=== PATIENT | female | born 1980 | race Caucasian/White ===

== ENCOUNTER 2021-12-24 13:40 | Emergency (ER) | payer MEDICAID, SELFPAY ==
[2021-12-24 13:40] VITALS: BP 135/84; PULSE 74; RESP 18; TEMP 36.6; O2SAT 99; BMI 28.3
--- NOTE | 2021-12-24 13:51 | XRR_ITS ---
PROCEDURE INFORMATION: Exam: XR Cervical Spine Exam date and time: 12/24/2021 2:10 PM Age: 41 years old Clinical indication: Injury or trauma; Fall; Blunt trauma TECHNIQUE: Imaging protocol: XR of the cervical spine. Views: 2 or 3 views. COMPARISON: CT head wo con* [id number] 12/24/2021 2:01 PM FINDINGS: Bones/joints: Spinal alignment is normal. Vertebral body height is maintained. The cervical spine is visible through C7-T1 on the lateral view. The tip of the dens is obscured. No acute fracture is visible. Soft tissues: Visible soft tissues are unremarkable. XR/XR cervical spine 3V* [id number] IMPRESSION: No acute fracture.
--- NOTE | 2021-12-24 13:51 | CTR_ITS ---
PROCEDURE INFORMATION: Exam: CT Head Without Contrast Exam date and time: 12/24/2021 2:01 PM Age: 41 years old Clinical indication: Injury or trauma; Fall; Blunt trauma (contusions or hematomas); Injury date: 12/24/21; Injury details: Seizure like activity, severe [place]; Additional info: Fall, closed head injury TECHNIQUE: Imaging protocol: Computed tomography of the head without contrast. Radiation optimization: All CT scans at this facility use at least one of these dose optimization techniques: automated exposure control; mA and/or kV adjustment per patient size (includes targeted exams where dose is matched to clinical indication); or iterative reconstruction. COMPARISON: No relevant prior studies available. RADIATION DOSE METRICS: Total DLP (mGy-cm): 926.86 FINDINGS: Brain: The brain is unremarkable. There is no mass effect or significant white matter disease. There is no acute intracranial hemorrhage. Cerebral ventricles: There is no significant ventricular dilation. The basal cisterns are unremarkable. Paranasal sinuses: The paranasal sinuses are clear. Mastoid air cells: The mastoid air cells are clear. Bones/joints: The calvarium is intact. Soft tissues: The visible extracranial soft tissues are unremarkable. CT/CT head wo con* [id number] IMPRESSION: No acute intracranial abnormality.
--- NOTE | 2021-12-24 13:51 | ECG_ITS ---
[facility] Test Date: 2021-12-24 Pat Name: Julia Elizondo Department: Room: Gender: Female [employer]ill [employer] Tender: : 1980 Requested By: Denton Hamlin Order Number: [id number] Shu MD: Rafael Cooper M.D. Measurements Intervals [place] Rate: 58 P: 54 [place]: 136 QRS: 30 QRSD: 97 T: 20 QT: 431 QTc: 426 Interpretive Statements SINUS BRADYCARDIA LOW QRS VOLTAGE IN PRECORDIAL LEADS [QRS DEFLECTION < 1.0 mV IN CHEST LEADS] INCOMPLETE RIGHT BUNDLE BRANCH BLOCK [90+ ms QRS DURATION, TERMINAL R IN V1/V2, 40+ ms S IN I/aVL/V4/V5/V6] No previous ECG available for comparison Electronically Signed On 12-24-2021 17:13:36 CDT by Rafael Cooper M.D. [id number]
--- NOTE | 2021-12-24 13:58 | W.ED.SEIZURE ---
HPI - Seizure General: Chief Complaint: Fall Stated Complaint: POSSIBLE SEIZURE LIKE ACTIVITY Time Seen by Provider: 12/24/21 13:51 Source: patient Mode of arrival: EMS Limitations: no limitations History of Present Illness: HPI Narrative: 41-year-old female presents to the emergency room from work. 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 She was not feeling well she remained seated for a time when she went to get up she felt like her symptoms worsened she began experiencing a little bit of shortness of breath and then had set up and collapsed she fell backwards and hit her head she did not have a complete loss of consciousness at any time but was stunned. She not on any anticoagulants. There is a question years ago about a possible seizure activity but they believe it was related to something cardiac sounds like from her description she may have had an orthostatic episode she has had work-up before for bradycardia and hypotension. She denies taking any prescription medications she is not been taking any [id number] medications either or any kind of nutritional supplements. She has not had any chest pain. With this episode she did not have loss of consciousness or loss of bowel or bladder control. No recent illness no shortness of breath no chest pain at this time. Onset (ago): minute(s) Witnessed: Yes - by Bystander Trauma: No Seizure History: Yes Possible Precipitating Event: none Associated symptoms: Reports syncope and weakness; Deny chest pain, chills, confusion, cough, diaphoresis, fever(s), anorexia, malaise, rash or short of breath Treatments prior to arrival: none Review of Systems Const: Denies: fever(s), chills, malaise or diaphoresis ENMT: Denies: throat pain, ear or mastoid pain, nasal discharge or nasal congestion Card: Reports: syncope; Denies: chest pain Resp: Denies: dyspnea, productive cough or non-productive cough GI: Denies: abdominal pain, nausea, vomiting, hematemesis, coffee ground emesis, diarrhea, constipation, bloating, hematochezia or melena : Denies: flank pain, difficulty voiding, dysuria, urinary frequency or urinary urgency Skin/Breast: Denies: rash or pruritus Neuro: Denies: confusion PFSH ED PFSH: Medical History (Updated 12/24/21 @ 15:58 by Denton Acuña DO) Bradycardia Surgical History (Updated 12/24/21 @ 14:05 by Denton Acuña DO) No pertinent past surgical history Social History (Updated 12/24/21 @ 14:05 by Denton Acuña DO) Smoking and tobacco status: current every day smoker Alcohol intake: never Physical Exam Const: GENERAL APPEARANCE: cooperative and comfortable ORIENTATION/CONSCIOUSNESS: Yes awake, Yes oriented to person, Yes oriented to place and Yes oriented to time HENMT: COMMON NORMALS: normocephalic, atraumatic, hearing grossly normal bilaterally, external ears normal, EAC's normal, TM's normal bilaterally, Normal nasal mucous membranes and turbinates present, moist oral mucous membranes and oropharynx normal HEAD & SCALP: normocephalic and atraumatic NOSE: Normal nasal mucous membranes and turbinates present EXTERNAL EAR: Yes external ears normal EXTERNAL AUDITORY CANAL: EAC's normal TYMPANIC MEMBRANE: TM's normal bilaterally Eye: COMMON NORMALS: Equal, round and reactive pupils present, EOMs intact bilaterally, conjunctivae normal and no scleral icterus CONJUNCTIVA: Yes conjunctivae normal PUPIL: Yes Equal, round and reactive pupils present Neck/C-Spine: COMMON NORMALS: full ROM, no lymphadenopathy, supple and no JVD Resp: COMMON NORMALS: normal respiratory effort, No retractions, No use of accessory muscles and clear to auscultation bilaterally AUSCULTATION: clear to auscultation bilaterally Cardio: COMMON NORMALS: no JVD, regular rate, regular rhythm and No murmurs present (Cardio) RATE: regular rate RHYTHM: regular rhythm GI: COMMON NORMALS: Soft to palpation and No hepatosplenomegaly present AUSCULTATION: Yes normoactive bowel sounds PALPATION: Yes Soft to palpation, No Tenderness to palpation present (GI), No Guarding due to palpation present (GI) and Yes No hepatosplenomegaly present Extremity: COMMON NORMALS: normal to inspection, capillary refill normal, no clubbing, cyanosis or edema, no calf tenderness and no pedal edema Neuro: SENSORIUM/ORIENTATION: Yes oriented to person, Yes oriented to place and Yes oriented to time Skin: COMMON NORMALS: no rashes or lesions noted GENERAL SKIN EXAM: no rashes or lesions noted Course Vital Signs: Vital signs: Vital Signs Temperature 97.9 F 12/24/21 13:40 Pulse Rate 55 L 12/24/21 16:17 Respiratory Rate 16 12/24/21 16:17 Blood Pressure 128/64 12/24/21 16:17 Pulse Oximetry 99 12/24/21 16:17 MDM - Seizure MDM Narrative Medical decision making narrative: CPK is elevated I suspect she may have had a seizure she reports having had them in the past we will discharge her home and have her follow-up with neurology we will set her up for an EMG she has any recurrence of episodes return to the emergency room. Medical Records Attestation: I reviewed the patient's medical records. Lab Data Attestation: I reviewed the patient's lab results. Result diagrams: 12/24/21 13:24 12/24/21 13:24 Labs: Radiology Impressions Cervical Spine X-Ray 12/24/21 13:51 IMPRESSION: No acute fracture. Head CT 12/24/21 13:51 IMPRESSION: No acute intracranial abnormality. Laboratory Results WBC 9.8 10^3/uL (4.0-10.0) 12/24/21 13:24 RBC 4.66 10^6/uL (4.1-5.3) 12/24/21 13:24 Hgb 14.6 g/dL (11.5-15.3) 12/24/21 13:24 Hct 43.4 % (37.0-47.0) 12/24/21 13:24 MCV 93.1 fl (81-99) 12/24/21 13:24 MCH 31.3 pg (28.0-34.0) 12/24/21 13:24 MCHC 33.6 g/dL (30.0-36.0) 12/24/21 13:24 RDW 13.4 % (12.1-15.1) 12/24/21 13:24 Plt Count 359 10^3/cmm (130-400) 12/24/21 13:24 MPV 8.6 fL (7.4-10.4) 12/24/21 13:24 Neut % (Auto) 65.0 % 12/24/21 13:24 Lymph % (Auto) 27.9 % 12/24/21 13:24 [place] % (Auto) 4.7 % 12/24/21 13:24 Eos % (Auto) 1.6 % 12/24/21 13:24 Baso % (Auto) 0.5 % 12/24/21 13:24 Neut # (Auto) 6.36 10^3/uL (1.8-7.7) 12/24/21 13:24 Lymph # (Auto) 2.7 10^3/uL (0.8-4.8) 12/24/21 13:24 [place] # (Auto) 0.5 10^3/uL (0.2-0.9) 12/24/21 13:24 Eos # (Auto) 0.2 10^3/uL (0.0-0.8) 12/24/21 13:24 Baso # (Auto) 0.1 10^3/uL (0.0-0.1) 12/24/21 13:24 Nucleated RBC % (auto) 0 % 12/24/21 13:24 Nucleated RBCs # 0.0 /100WBC 12/24/21 13:24 Sodium 138 mmol/L (136-145) 12/24/21 13:24 Potassium 4.1 mmol/L (3.5-5.1) 12/24/21 13:24 Chloride 101 mmol/L (98-107) 12/24/21 13:24 Carbon Dioxide 19 mmol/L (22-29) L 12/24/21 13:24 Anion Gap 22.1 (5-19) H 12/24/21 13:24 BUN 8 mg/dL (6-20) 12/24/21 13:24 Creatinine 0.6 mg/dL (0.5-0.9) 12/24/21 13:24 GFR Calculation 109.6 mL/min (90-130) 12/24/21 13:24 Glucose 95 mg/dL (65-115) 12/24/21 13:24 Calculated Osmolality 284 mOsm/kg (285-295) L 12/24/21 13:24 Calcium 9.6 mg/dL (8.5-10.5) 12/24/21 13:24 Total Bilirubin 0.4 mg/dL (0.15-1.2) 12/24/21 13:24 AST 30 U/L (0-32) 12/24/21 13:24 ALT 28 U/L (0-33) 12/24/21 13:24 Alkaline Phosphatase 63 IU/L (35-105) 12/24/21 13:24 Creatine Kinase 320 U/L (26-192) H 12/24/21 13:24 Total Protein 7.7 g/dL (6.6-8.7) 12/24/21 13:24 Albumin 4.7 g/dL (3.5-5.2) 12/24/21 13:24 Globulin 3.0 g/dL (1.3-4.6) 12/24/21 13:24 Urine Color Yellow (Yellow) 12/24/21 14:45 Urine Appearance Clear (CLEAR) 12/24/21 14:45 Urine pH 5 (5-7) 12/24/21 14:45 Ur Specific [place] 1.010 (1.005-1.030) 12/24/21 14:45 Urine Protein Neg (Negative) 12/24/21 14:45 Urine Glucose (UA) Norm (Normal) 12/24/21 14:45 Urine Ketones 3+ (Negative) H 12/24/21 14:45 Urine Blood Neg (Negative) 12/24/21 14:45 Urine Nitrate Negative (Negative) 12/24/21 14:45 Urine Bilirubin Neg (Negative) 12/24/21 14:45 Urine Urobilinogen Norm mg/dL (Negative) 12/24/21 14:45 Ur Leukocyte Esterase Negative (Negative) 12/24/21 14:45 Discharge Plan Discharge Patient Disposition: Home Clinical Impression: Seizure Condition: Stable Discharge Orders: Discharge ED (Routine); Ordered 12/24/21 Ordered By: Denton Acuña Referrals: Kar Ceron MD [Referring] - Patient Instructions: Opioid Safety Activity Restrictions/Additional Instructions: Reccomend that you do not drive. Case managment will make arrangements for a EEG and follow up with neurology. 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
[2021-12-24 14:02] LABS: Basophils # 0.1 10^3/uL (0.0-0.1); Basophils % 0.5 %; Eosinophils # 0.2 10^3/uL (0.0-0.8); Eosinophils % 1.6 %; Hematocrit 43.4 % (37.0-47.0); Hemoglobin 14.6 g/dL (11.5-15.3); Lymphocytes # 2.7 10^3/uL (0.8-4.8); Lymphocytes % 27.9 %; Mean Corpuscular HGB Conc 33.6 g/dL (30.0-36.0); Mean Corpuscular Hemoglobin 31.3 pg (28.0-34.0); Mean Corpuscular Volume 93.1 fl (81-99); Mean Platelet Volume 8.6 fL (7.4-10.4); Monocytes # 0.5 10^3/uL (0.2-0.9); Monocytes % 4.7 %; Neutrophils # 6.36 10^3/uL (1.8-7.7); Nucleated Red Blood Cells % 0 %; Platelet Count 359 10^3/cmm (130-400); Red Blood Count 4.66 10^6/uL (4.1-5.3); Red Cell Distribution Width 13.4 % (12.1-15.1); White Blood Count 9.8 10^3/uL (4.0-10.0)
[2021-12-24 14:27] LABS: Alanine Aminotransferase 28 U/L (0-33); Albumin Level 4.7 g/dL (3.5-5.2); Alkaline Phosphatase 63 IU/L (35-105); Blood Urea Nitrogen 8 mg/dL (6-20); Calcium 9.6 mg/dL (8.5-10.5); Carbon Dioxide 19 mmol/L (22-29); Chloride 101 mmol/L (98-107); Creatine Phosphokinase 320 U/L (26-192); Glomerular Filtration Rate 109.6 mL/min (90-130); Glucose 95 mg/dL (65-115); Osmolality Calculated 284 mOsm/kg (285-295); Sodium 138 mmol/L (136-145); Total Bilirubin 0.4 mg/dL (0.15-1.2); Total Protein 7.7 g/dL (6.6-8.7)
[2021-12-24 14:29] LABS: Anion Gap 22.1 (5-19); Potassium 4.1 mmol/L (3.5-5.1)
[2021-12-24 14:30] LABS: Aspartate Amino Transferase 30 U/L (0-32)
[2021-12-24 14:52] LABS: Add Urine Microscopic? NO; Charge for UA Resulting for Rev
[2021-12-24 14:56] LABS: Bilirubin Urine Neg (Negative); Blood Urine Neg (Negative); Glucose Urine UA Norm (Normal); Ketones Urine 3+ (Negative); Leukocyte Esterase Urine Negative (Negative); Nitrate Urine Negative (Negative); Protein Urine Neg (Negative); Urine Appearance Clear (CLEAR); Urine Color Yellow (Yellow); Urobilinogen Urine Norm (Negative); pH Urine 5 (5-7)
[2021-12-24] MEDS: ketorolac 30 mg/mL INJ IVP (15:05)
[2021-12-24] MEDS: promethazine 25 mg/mL SDV 1 mL 12.5 MG IM (15:06)
[2021-12-24 16:17] VITALS: BP 128/64; PULSE 55; RESP 16; O2SAT 99
--- NOTE | 2021-12-28 14:18 | DCPLANNER ---
Addendum entered by Karen Gu 02/25/22 10:57: Patient had a follow up appointment scheduled with neurology - appointment cancelled Addendum entered by Karen Gu 01/07/22 14:46: Patient has a follow up appointment scheduled for Tuesday, February 08, 2022 at 10:[address] Holden. Clinic will call patient with appointment information. Addendum entered by Karen Gu 01/01/22 13:16: regional manager had message from the neurology clinic that when clinic called and spoke to pt to set up an EEG and she wanted to speak with her doctor in [facility] before she schedules one.She said she would call back to let me know. Original Note: regional manager had message to schedule a follow up appointment for patient with neurology. regional manager sent patients information to the front office staff at neurology. Patients information will be printed and reviewed. Clinic will call patient with appointment information. regional manager also had order for an outpatient EEG. regional manager faxed a signed order to neurology, who will call patient with appointment information.
== END 2021-12-24 16:19 | disposition home or self-care (01) ==
PROVIDERS: Emergency Provider Family Medicine
DX: R56.9 Unspecified convulsions (principal)
CPT/HCPCS: 70450; 72040; 80053; 81003; 82550; 85025; 93005; 96372; 96374; 99285; J1885; J2550